=== PATIENT | female | born 1940 | race Caucasian/White ===

== ENCOUNTER 2018-08-21 16:47 | Inpatient (IN) | payer MEDICARE, BC ==
[~2018-08-21] VITALS: Ht 162.6 cm; Wt 74.9 kg
[~2018-08-21 16:47] MED LIST: AMLODIPINE; ARMO150T4; BACL-19; BENAZEPRIL; CLON0.5T20; VENL150C
[2018-08-21] MEDS ORDERED: METO50TA82 PO (17:08)
[2018-08-21] MEDS ORDERED: POTA10CA PO (17:15)
[2018-08-21] MEDS ORDERED: OMEG-14 PO (17:15)
[2018-08-21] MEDS ORDERED: RIVA20TA PO (17:15)
[2018-08-21] MEDS ORDERED: ALBU2.5V11 NEB (17:15)
[2018-08-21] MEDS ORDERED: MILK150C2 PO (17:15)
[2018-08-21] MEDS ORDERED: SPIR25TA5 PO (17:15)
[2018-08-21] MEDS ORDERED: BENA20TA4 PO (17:15)
[2018-08-21] MEDS ORDERED: FURO20TA3 PO (17:15)
[2018-08-21] MEDS ORDERED: MAGN400T7 PO (17:15)
[2018-08-21] MEDS ORDERED: SODIUM CHLORIDE FLUSH 10ML SYR IVF ONE (17:30)
[2018-08-21] MEDS ORDERED: SODIUM CHLORIDE 0.9% 1,000ML IVBOLUS ONE (17:30)
[2018-08-21 17:50] LABS: INTERNATIONAL NORMALIZED RATIO 1.88 (0.93-1.1); PROTHROMBIN TIME 19.3 Seconds (9.6-11.5)
[2018-08-21 17:51] LABS: ALANINE AMINOTRANSFERASE 136 U/L (12-78); ALBUMIN 3.4 g/dL (3.4-5.0); ANION GAP 11 mmol/L (5-15); CALCIUM 7.9 mg/dL (8.5-10.1); CHLORIDE 111 mmol/L (98-107)
[2018-08-21 17:55] LABS: ALKALINE PHOSPHATASE 86 U/L (45-117); BILIRUBIN,TOTAL 0.7 mg/dL (0.2-1.0); CREATININE 1.89 mg/dL (0.55-1.02); TOTAL PROTEIN 6.3 g/dL (6.4-8.2)
[2018-08-21 17:57] LABS: TROPONIN I 0.177 ng/mL (0.000-0.045)
[2018-08-21 18:01] LABS: MD YES; MEAN CORPUSCULAR HEMOGLOBIN 25.7 pg (27.0-34.8); MEAN CORPUSCULAR HGB CONC 31.1 g/dL (32.4-35.8); MEAN CORPUSCULAR VOLUME 82.6 fL (80-100); MEAN PLATELET VOLUME 10.5 fL (7.4-10.4); PLATELET COUNT 236 x10^3/uL (130-400); RED CELL DISTRIBUTION WIDTH 18.3 % (9.6-15.2)
[2018-08-21 18:47] LABS: BAND#(MANUAL) 0.13 x10^3/uL; BANDS%(MANUAL) 1 % (0-7); LYMPH#(MANUAL) 4.26 x10^3/uL (1-3.4); LYMPHS% (MANUAL) 33 % (22-44); MONOS#(MANUAL) 1.55 x10^3/uL (0.3-2.7); MONOS% (MANUAL) 12 % (2-9); SEG#(MANUAL) 6.97 x10^3/uL (1.8-6.8); SEGS% (MANUAL) 54 % (42-75)
[2018-08-21 18:50] LABS: <PLATELET ESTIMATE> ADEQUATE; <PLT MORPHOLOGY> NORMAL PLT MORPH; ANISOCYTOSIS 1+; HYPOCHROMIA 1+; POLYCHROMASIA 1+
[2018-08-21] MEDS ORDERED: PANTOPRAZOLE 80 MG in SODIUM CHLORIDE 0.9% 100 ML IV SCH (18:56)
[2018-08-21] MEDS ORDERED: PANTOPRAZOLE 80 MG in SODIUM CHLORIDE 0.9% 50 ML IVPB ONE (18:56)
[2018-08-21] MEDS ORDERED: SODIUM CHLORIDE 0.9% 1,000 ML IV ONE (19:14)
[2018-08-21] MEDS ORDERED: SODIUM CHLORIDE FLUSH 10ML SYR IVF PRN (19:30)
[2018-08-21] MEDS ORDERED: ONDANSETRON 2MG/ML, 2ML IVPush PRN (20:00)
[2018-08-21] MEDS: PANTOPRAZOLE 80 MG in SODIUM CHLORIDE 0.9% 100 ML IV SCH (20:00)
[2018-08-21] MEDS ORDERED: hydrALAzine 20 MG/ML, 1ML IVPush PRN (20:00)
[2018-08-21] MEDS ORDERED: ALBUTEROL SULFATE 2.5MG/0.5ML NEB PRN (20:30)
[2018-08-21 21:26] VITALS: BP 124/51
[2018-08-21 23:46] VITALS: BP 143/51
[2018-08-22] VITALS (10 sets, daily range): BP systolic 110–144; BP diastolic 41–65
[2018-08-22] LABS: TROPONIN I 0.276 ng/mL (0.000-0.045)
[2018-08-22] MEDS: PANTOPRAZOLE 80 MG in SODIUM CHLORIDE 0.9% 100 ML IV SCH ×2 (00:38→18:22)
[2018-08-22 05:59] LABS: ANION GAP 9 mmol/L (5-15); CALCIUM 8.6 mg/dL (8.5-10.1); CHLORIDE 112 mmol/L (98-107)
[2018-08-22 06:05] LABS: TROPONIN I 0.231 ng/mL (0.000-0.045)
[2018-08-22] MEDS: SODIUM CHLORIDE 0.9% 1,000 ML IV SCH (10:11)
[2018-08-22] MEDS ORDERED: PROPOFOL 10 MG/ML, 20ML ONE (11:58)
[2018-08-22] MEDS ORDERED: hydrALAzine 20 MG/ML, 1ML IV PRN (12:00)
[2018-08-22] MEDS ORDERED: ONDANSETRON 2MG/ML, 2ML IV PRN (12:00)
[2018-08-22] MEDS ORDERED: FENTANYL PF 100 MCG/2ML IV PRN (12:00)
[2018-08-22] MEDS ORDERED: MEPERIDINE/PF 25MG/0.5ML IVPush PRN (12:00)
[2018-08-22] MEDS ORDERED: DIPHENHYDRAMINE 50 MG/ML, 1ML IVPush PRN (12:00)
[2018-08-22] MEDS ORDERED: LABETALOL 5MG/ML, 20ML IV PRN (12:00)
[2018-08-22] MEDS: SUCRALFATE 1 GM/10 ML UDC PO SCH ×2 (16:38→21:41)
[2018-08-23 00:38] VITALS: BP 156/70
[2018-08-23] MEDS: SODIUM CHLORIDE 0.9% 1,000 ML IV SCH (01:43)
[2018-08-23] MEDS: PANTOPRAZOLE 80 MG in SODIUM CHLORIDE 0.9% 100 ML IV SCH (04:39)
[2018-08-23 06:51] VITALS: BP 165/72
[2018-08-23] MEDS: OMEPRAZOLE 20 MG CAPSULE.DR PO SCH (07:59)
[2018-08-23] MEDS: SUCRALFATE 1 GM/10 ML UDC PO SCH ×4 (07:59→20:22)
[2018-08-23] MEDS ORDERED: METOPROLOL TARTRATE 25 MG TABLET ONE (09:13)
[2018-08-23] MEDS ORDERED: METOPROLOL TARTRATE 50 MG TABLET PO SCH (09:30)
[2018-08-23] MEDS ORDERED: MAGNESIUM SULFATE PMX 2GM/50ML 50 ML IV ONE (09:30)
[2018-08-23] MEDS ORDERED: METOPROLOL TARTRATE 25 MG TABLET PO SCH (09:30)
[2018-08-23 09:40] LABS: INTERNATIONAL NORMALIZED RATIO 1.35 (0.93-1.1); MEAN CORPUSCULAR HGB CONC 31.9 g/dL (32.4-35.8); MEAN CORPUSCULAR VOLUME 84.7 fL (80-100); MEAN PLATELET VOLUME 9.7 fL (7.4-10.4); PLATELET COUNT 188 x10^3/uL (130-400); RED BLOOD COUNT 3.45 x10^6/uL (3.82-5.3); RED CELL DISTRIBUTION WIDTH 17.9 % (9.6-15.2)
[2018-08-23 09:44] LABS: ALANINE AMINOTRANSFERASE 136 U/L (12-78); ALBUMIN 3.7 g/dL (3.4-5.0); ANION GAP 9 mmol/L (5-15); CALCIUM 8.4 mg/dL (8.5-10.1); CHLORIDE 111 mmol/L (98-107); CREATININE 1.24 mg/dL (0.55-1.02)
[2018-08-23 09:46] LABS: ALKALINE PHOSPHATASE 110 U/L (45-117); BILIRUBIN,TOTAL 1.3 mg/dL (0.2-1.0); TOTAL PROTEIN 6.4 g/dL (6.4-8.2)
[2018-08-23] MEDS ORDERED: METOPROLOL 1 MG/ML, 5ML IVPush ONE (10:00)
[2018-08-23] MEDS: SODIUM CHLORIDE NASAL SPRAY 45ML BOTTLE NAS SCH ×2 (10:00→20:22)
[2018-08-23] MEDS ORDERED: POTASSIUM CHLORIDE 20 MEQ TAB.ER.PRT PO ONE (10:30)
[2018-08-23 10:38] LABS: ANISOCYTOSIS 1+; BASOPHILS # (AUTO) 0.05 x10^3/uL (0-0.1); BASOPHILS % (AUTO) 0 % (0-1); EOSINOPHILS # (AUTO) 0.22 x10^3/uL (0-0.4); EOSINOPHILS % (AUTO) 2 % (1-7); HYPOCHROMIA 1+; LYMPHOCYTES # (AUTO) 5.09 x10^3/uL (1-3.4); LYMPHOCYTES % (AUTO) 36 % (22-44); MD MORPH REVIEW ONLY; MONOCYTES # (AUTO) 2.24 x10^3/uL (0.2-0.8); MONOCYTES % (AUTO) 16 % (2-9); NEUTROPHILS # (AUTO) 6.42 x10^3/uL (1.8-6.8); NEUTROPHILS % (AUTO) 46 % (42-75); POLYCHROMASIA 1+
[2018-08-23 10:39] LABS: <PLATELET ESTIMATE> ADEQUATE; <PLT MORPHOLOGY> NORMAL PLT MORPH; SMUDGE CELLS 1+
[2018-08-23] MEDS: IRON SUCROSE COMPLEX 100MG/5ML IV SCH (12:12)
[2018-08-23 13:58] VITALS: BP 126/80
[2018-08-23] MEDS: METOPROLOL TARTRATE 25 MG TABLET PO SCH (19:03)
[2018-08-23 19:46] VITALS: BP 149/77
[2018-08-24 01:15] VITALS: BP 131/88
[2018-08-24 01:17] LABS: MICROSCOPIC AUTO
[2018-08-24 01:23] LABS: CULTURE INDICATED? YES
[2018-08-24 05:08] LABS: MEAN CORPUSCULAR HEMOGLOBIN 26.4 pg (27.0-34.8); MEAN CORPUSCULAR HGB CONC 31.3 g/dL (32.4-35.8); MEAN CORPUSCULAR VOLUME 84.6 fL (80-100); MEAN PLATELET VOLUME 10.2 fL (7.4-10.4); PLATELET COUNT 183 x10^3/uL (130-400); RED BLOOD COUNT 3.42 x10^6/uL (3.82-5.3); RED CELL DISTRIBUTION WIDTH 18.2 % (9.6-15.2)
[2018-08-24 05:24] LABS: CHLORIDE 114 mmol/L (98-107); INTERNATIONAL NORMALIZED RATIO 1.3 (0.93-1.1); PROTHROMBIN TIME 13.4 Seconds (9.6-11.5)
[2018-08-24 05:31] LABS: ALANINE AMINOTRANSFERASE 100 U/L (12-78); ALBUMIN 3.2 g/dL (3.4-5.0); ALKALINE PHOSPHATASE 102 U/L (45-117); ANION GAP 10 mmol/L (5-15); CALCIUM 8.4 mg/dL (8.5-10.1); CREATININE 1.09 mg/dL (0.55-1.02); TOTAL PROTEIN 5.9 g/dL (6.4-8.2)
[2018-08-24 05:42] LABS: BASOPHILS # (AUTO) 0.06 x10^3/uL (0-0.1); BASOPHILS % (AUTO) 1 % (0-1); EOSINOPHILS # (AUTO) 0.28 x10^3/uL (0-0.4); EOSINOPHILS % (AUTO) 2 % (1-7); LYMPHOCYTES # (AUTO) 3.28 x10^3/uL (1-3.4); LYMPHOCYTES % (AUTO) 28 % (22-44); MD SCAN; MONOCYTES # (AUTO) 2.18 x10^3/uL (0.2-0.8); MONOCYTES % (AUTO) 18 % (2-9); NEUTROPHILS # (AUTO) 6.14 x10^3/uL (1.8-6.8); NEUTROPHILS % (AUTO) 51 % (42-75)
[2018-08-24] MEDS: SUCRALFATE 1 GM/10 ML UDC PO SCH ×4 (06:01→21:00)
[2018-08-24] MEDS: METOPROLOL TARTRATE 25 MG TABLET PO SCH ×4 (06:01→21:18)
[2018-08-24 08:00] VITALS: BP 135/78
[2018-08-24] MEDS: OMEPRAZOLE 20 MG CAPSULE.DR PO SCH (08:16)
[2018-08-24] MEDS: IRON SUCROSE COMPLEX 100MG/5ML IV SCH (08:16)
[2018-08-24] MEDS: BENAZEPRIL 20 MG TABLET PO SCH (08:16)
[2018-08-24] MEDS ORDERED: POTASSIUM CHLORIDE 20 MEQ TAB.ER.PRT PO ONE (09:00)
[2018-08-24] MEDS: SODIUM CHLORIDE NASAL SPRAY 45ML BOTTLE NAS SCH ×2 (09:00→21:00)
[2018-08-24] MEDS: CEFTRIAXONE PMX 1GM/50ML 50 ML IV SCH (09:13)
[2018-08-24] MEDS: INSULIN LISPRO 100 UNITS/ML, PEN SQ-INSULIN SCH ×3 (12:00→21:00)
[2018-08-24] MEDS ORDERED: DIGOXIN 0.25 MG/ML, 2ML IVPush ONE (12:00)
[2018-08-24] MEDS ORDERED: MAGNESIUM SULFATE PMX 2GM/50ML 50 ML IV ONE (12:00)
[2018-08-24] MEDS ORDERED: METOPROLOL 1 MG/ML, 5ML IVPush ONE (12:00)
[2018-08-24 14:00] VITALS: BP 128/72
[2018-08-24 19:28] VITALS: BP 124/78
[2018-08-24] MEDS: METRONIDAZOLE PMX 500MG/100ML 100 ML IV SCH (21:18)
[2018-08-25] MEDS: METOPROLOL TARTRATE 25 MG TABLET PO SCH ×4 (03:00→20:48)
[2018-08-25 03:45] VITALS: BP 132/73
[2018-08-25 06:00] LABS: MEAN CORPUSCULAR HEMOGLOBIN 27.1 pg (27.0-34.8); MEAN CORPUSCULAR HGB CONC 31.5 g/dL (32.4-35.8); MEAN CORPUSCULAR VOLUME 86.2 fL (80-100); MEAN PLATELET VOLUME 10.1 fL (7.4-10.4); PLATELET COUNT 169 x10^3/uL (130-400); RED BLOOD COUNT 3.45 x10^6/uL (3.82-5.3); RED CELL DISTRIBUTION WIDTH 18.5 % (9.6-15.2)
[2018-08-25 06:02] LABS: ANION GAP 8 mmol/L (5-15); CALCIUM 8.5 mg/dL (8.5-10.1); CHLORIDE 113 mmol/L (98-107)
[2018-08-25 06:05] LABS: CREATININE 1.09 mg/dL (0.55-1.02)
[2018-08-25 06:08] LABS: HEMOGLOBIN A1C 5.9 % (4.2-6.3)
[2018-08-25] MEDS: METRONIDAZOLE PMX 500MG/100ML 100 ML IV SCH ×3 (06:11→20:49)
[2018-08-25 06:38] LABS: BASOPHILS # (AUTO) 0.05 x10^3/uL (0-0.1); BASOPHILS % (AUTO) 1 % (0-1); EOSINOPHILS % (AUTO) 3 % (1-7); LYMPHOCYTES # (AUTO) 3.34 x10^3/uL (1-3.4); LYMPHOCYTES % (AUTO) 29 % (22-44); MD SCAN; MONOCYTES # (AUTO) 1.96 x10^3/uL (0.2-0.8); MONOCYTES % (AUTO) 17 % (2-9); NEUTROPHILS # (AUTO) 5.88 x10^3/uL (1.8-6.8); NEUTROPHILS % (AUTO) 51 % (42-75)
[2018-08-25] MEDS: INSULIN LISPRO 100 UNITS/ML, PEN SQ-INSULIN SCH ×4 (07:00→20:49)
[2018-08-25 07:47] VITALS: BP 142/85
[2018-08-25] MEDS: SODIUM CHLORIDE NASAL SPRAY 45ML BOTTLE NAS SCH ×2 (09:00→20:49)
[2018-08-25] MEDS: SUCRALFATE 1 GM/10 ML UDC PO SCH ×4 (09:49→20:48)
[2018-08-25] MEDS: CEFTRIAXONE PMX 1GM/50ML 50 ML IV SCH (09:50)
[2018-08-25] MEDS: OMEPRAZOLE 20 MG CAPSULE.DR PO SCH (09:50)
[2018-08-25] MEDS: BENAZEPRIL 20 MG TABLET PO SCH (09:51)
[2018-08-25] MEDS: IRON SUCROSE COMPLEX 100MG/5ML IV SCH (09:53)
[2018-08-25] MEDS ORDERED: NS + 20MEQ KCL 1,000 ML IV SCH (10:00)
[2018-08-25 13:45] VITALS: BP 128/69
[2018-08-25 20:17] VITALS: BP 133/78
[2018-08-26 01:46] VITALS: BP 119/70
[2018-08-26] MEDS: METOPROLOL TARTRATE 25 MG TABLET PO SCH ×2 (02:58→09:35)
[2018-08-26] MEDS: METRONIDAZOLE PMX 500MG/100ML 100 ML IV SCH ×2 (05:09→14:36)
[2018-08-26] MEDS: INSULIN LISPRO 100 UNITS/ML, PEN SQ-INSULIN SCH ×2 (07:00→12:25)
[2018-08-26 08:00] VITALS: BP 144/85
[2018-08-26] MEDS: SODIUM CHLORIDE NASAL SPRAY 45ML BOTTLE NAS SCH (09:00)
[2018-08-26] MEDS: IRON SUCROSE COMPLEX 100MG/5ML IV SCH (09:34)
[2018-08-26] MEDS: SUCRALFATE 1 GM/10 ML UDC PO SCH ×2 (09:34→12:24)
[2018-08-26] MEDS: BENAZEPRIL 20 MG TABLET PO SCH (09:35)
[2018-08-26] MEDS: OMEPRAZOLE 20 MG CAPSULE.DR PO SCH (09:35)
[2018-08-26] MEDS ORDERED: METR500T PO (10:07)
[2018-08-26] MEDS ORDERED: SUCR1TAB33 PO (10:07)
[2018-08-26] MEDS ORDERED: CEFD300C37 PO (10:07)
[2018-08-26] MEDS ORDERED: OMEP-110 PO (10:07)
[2018-08-26] MEDS: CEFTRIAXONE PMX 1GM/50ML 50 ML IV SCH (12:48)
[2018-08-26 14:00] VITALS: BP 139/77
[2018-08-28 14:00] LABS: ANA SCREEN NEGATIVE (Negative)
== END 2018-08-26 15:20 | disposition home health service (06) | DRG 377 ==
LOC: ED 18:41 → EDIP 19:14 → 4EST 20:43
PROVIDERS: ADMIT Internal Medicine; ATTEND Family Medicine
PROC: 0W3P8ZZ Control Bleeding in Gastrointestinal Tract, Via Natural or Artificial Opening Endoscopic (ICD-10-PCS; 2018-08-22)
PROC: 30233N1 Transfusion of Nonautologous Red Blood Cells into Peripheral Vein, Percutaneous Approach (ICD-10-PCS; principal; 2018-08-22 14:30)
DX: K31.811 Angiodysplasia of stomach and duodenum with bleeding (principal); N17.0 Acute kidney failure with tubular necrosis; G93.41 Metabolic encephalopathy; J69.0 Pneumonitis due to inhalation of food and vomit; D62 Acute posthemorrhagic anemia; D68.59 Other primary thrombophilia; E87.0 Hyperosmolality and hypernatremia; I24.8 Other forms of acute ischemic heart disease; J96.11 Chronic respiratory failure with hypoxia; K22.10 Ulcer of esophagus without bleeding; E11.65 Type 2 diabetes mellitus with hyperglycemia; E86.0 Dehydration; I11.0 Hypertensive heart disease with heart failure; I25.10 Atherosclerotic heart disease of native coronary artery without angina pectoris; I49.3 Ventricular premature depolarization; I50.9 Heart failure, unspecified; J44.9 Chronic obstructive pulmonary disease, unspecified; K21.9 Gastro-esophageal reflux disease without esophagitis; I48.2 Chronic atrial fibrillation; Z96.611 Presence of right artificial shoulder joint; Z60.2 Problems related to living alone; R00.8 Other abnormalities of heart beat; K31.819 Angiodysplasia of stomach and duodenum without bleeding; K57.30 Diverticulosis of large intestine without perforation or abscess without bleeding; Z79.01 Long term (current) use of anticoagulants; Z87.01 Personal history of pneumonia (recurrent); Z87.891 Personal history of nicotine dependence; Z90.710 Acquired absence of both cervix and uterus; Z90.49 Acquired absence of other specified parts of digestive tract; Z90.89 Acquired absence of other organs; Z79.84 Long term (current) use of oral hypoglycemic drugs
CPT/HCPCS: 0399T; 36415; 36600; 71045; 80048; 80053; 80074; 81001; 82728; 82784; 82803; 82962; 83036; 83516; 83540; 83550; 83735; 84484; 85014; 85018; 85025; 85610; 85730; 86038; 86850; 86870; 86900; 86902; 86922; 86923; 87086; 93005; 93306; 96361; 96365; G0378; J0696; J1756; J2704; J3480; C9113; J1160; J1200; J1815; J3475; J7030; P9016